=== PATIENT | female | born 1995 | race Caucasian/White ===

== ENCOUNTER 2021-06-21 10:08 | Emergency (ER) | payer BC ==
[2021-06-21] MEDS ORDERED: Sodium Chloride 0.9% 1000 ML 1,000 ML ONE (10:24)
[2021-06-21 10:29] LABS: A-aADO2 0; ABG HEMOGLOBIN 14.1; ABG POTASSIUM 3.6 (3.5-5.1); ARTERIAL BLD GAS O2 SATURATION 99.2 % (95-100); ARTERIAL BLOOD GAS FIO2 21 %; ARTERIAL BLOOD GAS PCO2 31 mmHg (35-45); ARTERIAL BLOOD GAS PO2 111 mmHg (75-100); ARTERIAL BLOOD GAS pH 7.49 (7.35-7.45); CARBOXYHEMOGLOBIN 1.1 % THgb (0.0-6.9); HCO3- 23.6 (22-28); HGB O2 SAT 97.4 g/dF (94-100); Methhemoglobin 0.7 % (1.4-1.5)
[2021-06-21 10:30] LABS: ABG SITE LEFT RADIAL; ALLEN TEST OK? YES
[2021-06-21] MEDS ORDERED: Sodium Chloride 0.9% 1000 ML 1,000 ML IV SCH (10:30)
[2021-06-21 11:00] LABS: Absolute Neutrophil Ct (ANC) 7.77 (1.4-6.9); BASOPHIL % 0.2 % (0.0-0.4); Basophil (Absolute #) 0.03 (0-0.4); Eosinophil % 1.8 % (0.00-5.0); Eosinophil (Absolute #) 0.23 (0-0.5); Hemoglobin 14.2 gm/dl (12.0-16.0); Lymphocyte (Absolute #) 3.83 (1.0-4.6); Lymphocytes % 30.5 % (24.0-44.0); Mean Cell Volume 89.1 fl (78-100); Mean Corpuscular Hemoglobin 28.7 pg (26-32); Mean Corpuscular Hgb Concent. 32.3 g/dl (32-36); Mean Platelet Volume 11.3 fl (7.5-11.0); Monocyte (Absolute #) 0.71 (0.0-1.3); Monocytes % 5.6 % (0.0-12.0); Neutrophil % 61.9 % (36.0-66.0); Platelet Count 314 K/mm3 (150-450); Red Blood Count 4.94 M/mm3 (4.1-5.4); Red Cell Distribution Width 12.9 % (11.5-14.0); White Blood Count 12.6 K/mm3 (4.0-10.5)
[2021-06-21 11:01] LABS: Appearance SLIGHTLY CLOUDY (CLEAR); Bilirubin NEGATIVE (NEGATIVE); Blood NEGATIVE Ery/ul (0-5); Epithelial Cells RARE /HPF (FEW); Glucose NEGATIVE (NEGATIVE); Ketones NEGATIVE (NEGATIVE); Leukocyte Esterase NEGATIVE (NEGATIVE); Nitrite NEGATIVE (NEGATIVE); Protein,Urine Dip NEGATIVE (Negative); RBC 0-2 /HPF (0-2); Specific Gravity 1.021 (1.005-1.025); Urobilinogen NEGATIVE mg/dL (0-1); WBC 0-2 /HPF (0-5)
[2021-06-21 11:04] LABS: Bacteria FEW /HPF (NEGATIVE)
[2021-06-21 11:06] LABS: PROTIME 11.8 SECONDS (9.4-12.5)
[2021-06-21 11:08] LABS: PTT 29.4 SECONDS (25.1-36.5)
[2021-06-21 11:17] LABS: INFLUENZA A NEGATIVE (NEGATIVE); INFLUENZA B NEGATIVE (NEGATIVE)
[2021-06-21 11:19] LABS: ALBUMIN 4.5 g/dL (3.5-5.0); ALKALINE PHOSPHATASE 108 U/L (38-126); ANION GAP 17.8 MEQ/L (5-15); BLOOD UREA NITROGEN 15 mg/dL (7-17); CHLORIDE 101 mmol/L (98-107); Calcium 9.2 mg/dL (8.4-10.2); Carbon Dioxide 25 mmol/L (22-30); Creatinine 1 0.79 mg/dL (0.52-1.04); EST GLOMERULAR FILTRATION RATE > 60.0 ML/MIN; Glucose 97 mg/dL (74-106); MAGNESIUM 2.2 mg/dL (1.6-2.3); NT PRO BNP 24.2 pg/mL (0-450); Potassium 3.4 mmol/L (3.5-5.1); SGOT/AST 20 U/L (14-36); SGPT/ALT 18 U/L (0-35); SODIUM 140 mmol/L (137-145); Total Protein 7.9 g/dL (6.3-8.2)
[2021-06-21 11:21] VITALS: BP 141/77; PULSE 82; O2SAT 100
--- NOTE | 2021-06-21 12:34 | XRAY ---
Indication: Chest tightness and short of breath. Negative Covid 19 testing. Multiple contiguous axial images obtained through the chest using 100 cc Isovue 370 contrast and PE protocol. Comparison: None There is adequate opacification of the pulmonary arteries to include the lobar and segmental branches. No pulmonary embolus. Heart not enlarged. Aorta is normal in course and caliber. No pathologic mediastinal/hilar lymphadenopathy. Small hiatal hernia. Lungs are inflated and clear. Bony thorax intact. Limited upper abdomen demonstrates fatty liver and 14.6 cm splenomegaly. Impression: 1. Negative pulmonary embolus. No acute cardiopulmonary abnormalities. 2. Incidental small hiatal hernia, fatty liver, and splenomegaly.
--- NOTE | 2021-06-21 12:48 | ERPHSYRPT ---
- History of Present Illness Time Seen by Provider: 06/21/21 10:30 Source: patient Exam Limitations: no limitations Patient Subjective Stated Complaint: SOB Triage Nursing Assessment: .... Physician History: Patient is a 25-year-old white female who presents with a complaint of shortness of breath basically for 3 weeks. She also this morning noticed some tingling in her face she had a near syncopal episode and she was dizzy. She has been tested for Covid on 15 June and 14 July she has been seen at the [facility] twice diagnosed with bronchitis started on prednisone and Z-Zacarias. Denies any other real symptoms associated with Covid beyond shortness of breath and cough. Timing/Duration: week(s) (3) Cough Quality/Degree: moderate, productive cough Possible Cause: no prior episodes Modifying Factors: Improves With: albuterol inhaler, coughing, exertion Associated Symptoms: cough, dizziness, wheezing Allergies/Adverse Reactions: cefaclor [From Ceclor] Allergy (Verified 06/21/21 10:17) Hx Influenza Vaccination/Date Given: No Hx Pneumococcal Vaccination/Date Given: No Immunizations Up to Date: Yes Travel Risk - International Travel Have you traveled outside of the country in past 3 weeks: No - Coronavirus Screening Are you exhibiting any of the following symptoms?: Yes Symptoms: Shortness of Breath, Headaches/Body Aches/Fatigue - Vaccine Status Have you recieved a Covid-19 vaccination: No - Review of Systems Constitutional: No Fever, No Chills Eyes: No Symptoms Ears, Nose, & Throat: No Symptoms Respiratory: Cough, Dyspnea, Wheezing Cardiac: No Chest Pain, No Edema, No Syncope Abdominal/Gastrointestinal: No Abdominal Pain, No Nausea, No Vomiting, No Diarrhea Genitourinary Symptoms: No Dysuria Musculoskeletal: No Back Pain, No Neck Pain Skin: No Rash Neurological: No Dizziness, No Focal Weakness, No Sensory Changes Psychological: No Symptoms Endocrine: No Symptoms All Other Systems: Reviewed and Negative - Past Medical History Pertinent Past Medical History: No Neurological History: No Pertinent History ENT History: No Pertinent History Cardiac History: No Pertinent History Respiratory History: No Pertinent History Endocrine Medical History: No Pertinent History Musculoskeletal History: No Pertinent History GI Medical History: No Pertinent History History: No Pertinent History Psycho-Social History: No Pertinent History Female Reproductive Disorders: No Pertinent History - Past Surgical History Past Surgical History: No Neuro Surgical History: No Pertinent History Cardiac: No Pertinent History Respiratory: No Pertinent History Gastrointestinal: No Pertinent History Genitourinary: No Pertinent History Musculoskeletal: No Pertinent History Female Surgical History: No Pertinent History - Social History Smoking Status: Never smoker Exposure to second hand smoke: No Drug Use: none Patient Lives Alone: No - Female History Hx Last Menstrual Period: last week Hx Now: No - Nursing Vital Signs Nursing Vital Signs: Initial Vital Signs Temperature 98.1 F 06/21/21 10:18 Pulse Rate 91 H 06/21/21 10:18 Respiratory Rate 19 06/21/21 10:18 Blood Pressure 142/107 06/21/21 10:18 O2 Sat by Pulse Oximetry 99 06/21/21 10:18 Pain Scale Pain Intensity 0 - Physical Exam General Appearance: mild distress, alert Eye Exam: PERRL/EOMI, eyes nml inspection Ears, Nose, Throat Exam: normal ENT inspection, TMs normal, pharynx normal, m oist mucous membranes Neck Exam: normal inspection, non-tender, supple, full range of motion Respiratory Exam: normal breath sounds, lungs clear, No respiratory distress Cardiovascular Exam: regular rate/rhythm, normal heart sounds Gastrointestinal/Abdomen Exam: soft, No tenderness Back Exam: normal inspection, No CVA tenderness, No vertebral tenderness Extremity Exam: normal inspection, normal range of motion Neurologic Exam: alert, oriented x 3, cooperative, normal mood/affect, sensation nml, No motor deficits Skin Exam: normal color, warm, dry, No rash Lymphatic Exam: No adenopathy SpO2: 100 - Course Nursing assessment & vital signs reviewed: Yes EKG Interpreted by Me: RATE ([id number]), Sinus Rhythm, NORMAL AXIS, prolonged QT interval, NORMAL QRS, Non-specific ST Changes - CT Exams Chest CT Interpretation: Negative, Tele-radiologist Report Ordered Tests: Active Orders 24 hr Category Date Time Status EKG-ER Only STAT Care 06/21/21 10:16 Active IV Insertion STAT Care 06/21/21 10:16 Active CHEST WITH CONTRAST [CT] Stat Exams 06/21/21 10:17 Completed ARTERIAL BLOOD GASES Urgent Lab 06/21/21 10:16 Completed CBC W DIFF Stat Lab 06/21/21 10:40 Completed CMP Stat Lab 06/21/21 10:40 Completed D-DIMER QUANTITATIVE Stat Lab 06/21/21 10:51 Completed INFLUENZA A+B DANA Stat Lab 06/21/21 10:50 Completed Lactic Acid Stat Lab 06/21/21 10:16 Completed Lactic Acid Stat Lab 06/21/21 12:31 Received MAGNESIUM Stat Lab 06/21/21 10:40 Completed NT PRO BNP Stat Lab 06/21/21 10:40 Completed PROTIME WITH INR Stat Lab 06/21/21 10:51 Completed PTT Stat Lab 06/21/21 10:51 Completed TROPONIN Q3H Lab 06/21/21 10:40 Completed TROPONIN Q3H Lab 06/21/21 13:30 Ordered TROPONIN Q3H Lab 06/21/21 16:30 Ordered TROPONIN Q3H Lab 06/21/21 19:30 Ordered TROPONIN Q3H Lab 06/21/21 22:30 Ordered UA W/RFX UR CULTURE Stat Lab 06/21/21 10:22 Completed Medication Summary Generic Name Dose Route Start Last Admin Trade Name Freq PRN Reason Stop Dose Admin Sodium Chloride 1,000 mls @ 100 mls/hr 06/21/21 10:30 06/21/21 10:24 Sodium Chloride 0.9% 1000 Ml IV 07/21/21 10:29 100 mls/hr .Q10H CANDACE Administration Lab/Rad Data: Laboratory Result Diagrams 06/21/21 10:40 06/21/21 10:40 Laboratory Results 06/21/21 06/21/21 06/21/21 Range/Units 10:51 10:50 10:40 WBC (4.0-10.5) K/mm3 RBC (4.1-5.4) M/mm3 Hgb (12.0-16.0) gm/dl Hct (35-47) % MCV (78-100) fl MCH (26-32) pg MCHC (32-36) g/dl RDW (11.5-14.0) % Plt Count (150-450) K/mm3 MPV (7.5-11.0) fl Gran % (36.0-66.0) % Eos # (Auto) (0-0.5) Absolute Lymphs (auto) (1.0-4.6) Absolute Monos (auto) (0.0-1.3) Lymphocytes % (24.0-44.0) % Monocytes % (0.0-12.0) % Eosinophils % (0.00-5.0) % Basophils % (0.0-0.4) % Absolute Granulocytes (1.4-6.9) Basophils # (0-0.4) PT 11.8 (9.4-12.5) SECONDS INR 1.00 (0.8-3.0) APTT 29.4 (25.1-36.5) SECONDS D-Dimer 426 (215-500) ng/mL Puncture Site pCO2 (35-45) mmHg pO2 (75-100) mmHg Base Excess (-2.0-2.0) O2 Saturation (94-100) g/dF ABG pH (7.35-7.45) ABG HCO3 (22-28) ABG O2 Sat (Measured) (95-100) % Ricardo Test A-a Gradient a/A Ratio Hemoglobin Carboxyhemoglobin (0.0-6.9) % THgb Methemoglobin (1.4-1.5) % Potassium (3.5-5.1) Temperature C POC O2 Flow Rate % Sodium (137-145) mmol/L Chloride (98-107) mmol/L Carbon Dioxide (22-30) mmol/L Anion Gap (5-15) MEQ/L BUN (7-17) mg/dL Creatinine (0.52-1.04) mg/dL Estimated GFR ML/MIN Glucose (74-106) mg/dL Lactic Acid (0.4-2.0) Calcium (8.4-10.2) mg/dL Magnesium (1.6-2.3) mg/dL Total Bilirubin (0.2-1.3) mg/dL AST (14-36) U/L ALT (0-35) U/L Alkaline Phosphatase (38-126) U/L Troponin I < 0.012 (0.000-0.034) ng/mL NT-Pro-B Natriuret Pep (0-450) pg/mL Serum Total Protein (6.3-8.2) g/dL Albumin (3.5-5.0) g/dL Urine Color (YELLOW) Urine Appearance (CLEAR) Urine pH (5-6) Ur Specific [place] (1.005-1.025) Urine Protein (Negative) Urine Ketones (NEGATIVE) Urine Blood (0-5) Angel/ul Urine Nitrite (NEGATIVE) Urine Bilirubin (NEGATIVE) Urine Urobilinogen (0-1) mg/dL Ur Leukocyte Esterase (NEGATIVE) Urine WBC (Auto) (0-5) /HPF Urine RBC (Auto) (0-2) /HPF U Epithel Cells (Auto) (FEW) /HPF Urine Bacteria (Auto) (NEGATIVE) /HPF Urine Culture Reflexed (NO) Urine Glucose (NEGATIVE) mg/dL Influenza Type A Ag NEGATIVE (NEGATIVE) Influenza Type B Ag NEGATIVE (NEGATIVE) 06/21/21 06/21/21 06/21/21 Range/Units 10:40 10:40 10:22 WBC 12.6 H (4.0-10.5) K/mm3 RBC 4.94 (4.1-5.4) M/mm3 Hgb 14.2 (12.0-16.0) gm/dl Hct 44.0 (35-47) % MCV 89.1 (78-100) fl MCH 28.7 (26-32) pg MCHC 32.3 (32-36) g/dl RDW 12.9 (11.5-14.0) % Plt Count 314 (150-450) K/mm3 MPV 11.3 H (7.5-11.0) fl Gran % 61.9 (36.0-66.0) % Eos # (Auto) 0.23 (0-0.5) Absolute Lymphs (auto) 3.83 (1.0-4.6) Absolute Monos (auto) 0.71 (0.0-1.3) Lymphocytes % 30.5 (24.0-44.0) % Monocytes % 5.6 (0.0-12.0) % Eosinophils % 1.8 (0.00-5.0) % Basophils % 0.2 (0.0-0.4) % Absolute Granulocytes 7.77 H (1.4-6.9) Basophils # 0.03 (0-0.4) PT (9.4-12.5) SECONDS INR (0.8-3.0) APTT (25.1-36.5) SECONDS D-Dimer (215-500) ng/mL Puncture Site pCO2 (35-45) mmHg pO2 (75-100) mmHg Base Excess (-2.0-2.0) O2 Saturation (94-100) g/dF ABG pH (7.35-7.45) ABG HCO3 (22-28) ABG O2 Sat (Measured) (95-100) % Ricardo Test A-a Gradient a/A Ratio Hemoglobin Carboxyhemoglobin (0.0-6.9) % THgb Methemoglobin (1.4-1.5) % Potassium 3.4 L (3.5-5.1) Temperature C POC O2 Flow Rate % Sodium 140 (137-145) mmol/L Chloride 101 (98-107) mmol/L Carbon Dioxide 25 (22-30) mmol/L Anion Gap 17.8 H (5-15) MEQ/L BUN 15 (7-17) mg/dL Creatinine 0.79 (0.52-1.04) mg/dL Estimated GFR > 60.0 ML/MIN Glucose 97 (74-106) mg/dL Lactic Acid (0.4-2.0) Calcium 9.2 (8.4-10.2) mg/dL Magnesium 2.2 (1.6-2.3) mg/dL Total Bilirubin 0.50 (0.2-1.3) mg/dL AST 20 (14-36) U/L ALT 18 (0-35) U/L Alkaline Phosphatase 108 (38-126) U/L Troponin I (0.000-0.034) ng/mL NT-Pro-B Natriuret Pep 24.2 (0-450) pg/mL Serum Total Protein 7.9 (6.3-8.2) g/dL Albumin 4.5 (3.5-5.0) g/dL Urine Color YELLOW (YELLOW) Urine Appearance SLIGHTLY CLOUDY (CLEAR) Urine pH 6.0 (5-6) Ur Specific [place] 1.021 (1.005-1.025) Urine Protein NEGATIVE (Negative) Urine Ketones NEGATIVE (NEGATIVE) Urine Blood NEGATIVE (0-5) Angel/ul Urine Nitrite NEGATIVE (NEGATIVE) Urine Bilirubin NEGATIVE (NEGATIVE) Urine Urobilinogen NEGATIVE (0-1) mg/dL Ur Leukocyte Esterase NEGATIVE (NEGATIVE) Urine WBC (Auto) 0-2 (0-5) /HPF Urine RBC (Auto) 0-2 (0-2) /HPF U Epithel Cells (Auto) RARE (FEW) /HPF Urine Bacteria (Auto) FEW (NEGATIVE) /HPF Urine Culture Reflexed NO (NO) Urine Glucose NEGATIVE (NEGATIVE) mg/dL Influenza Type A Ag (NEGATIVE) Influenza Type B Ag (NEGATIVE) 06/21/21 06/21/21 Range/Units 10:16 10:16 WBC (4.0-10.5) K/mm3 RBC (4.1-5.4) M/mm3 Hgb (12.0-16.0) gm/dl Hct (35-47) % MCV (78-100) fl MCH (26-32) pg MCHC (32-36) g/dl RDW (11.5-14.0) % Plt Count (150-450) K/mm3 MPV (7.5-11.0) fl Gran % (36.0-66.0) % Eos # (Auto) (0-0.5) Absolute Lymphs (auto) (1.0-4.6) Absolute Monos (auto) (0.0-1.3) Lymphocytes % (24.0-44.0) % Monocytes % (0.0-12.0) % Eosinophils % (0.00-5.0) % Basophils % (0.0-0.4) % Absolute Granulocytes (1.4-6.9) Basophils # (0-0.4) PT (9.4-12.5) SECONDS INR (0.8-3.0) APTT (25.1-36.5) SECONDS D-Dimer (215-500) ng/mL Puncture Site LEFT RADIAL pCO2 31 L (35-45) mmHg pO2 111 H (75-100) mmHg Base Excess 1.0 (-2.0-2.0) O2 Saturation 97.4 (94-100) g/dF ABG pH 7.49 H (7.35-7.45) ABG HCO3 23.6 (22-28) ABG O2 Sat (Measured) 99.2 (95-100) % Ricardo Test YES A-a Gradient 0 a/A Ratio 1.00 Hemoglobin 14.1 Carboxyhemoglobin 1.1 (0.0-6.9) % THgb Methemoglobin 0.7 L (1.4-1.5) % Potassium 3.6 (3.5-5.1) Temperature 37.0 C POC O2 Flow Rate 21 % Sodium (137-145) mmol/L Chloride (98-107) mmol/L Carbon Dioxide (22-30) mmol/L Anion Gap (5-15) MEQ/L BUN (7-17) mg/dL Creatinine (0.52-1.04) mg/dL Estimated GFR ML/MIN Glucose (74-106) mg/dL Lactic Acid 3.0 H (0.4-2.0) Calcium (8.4-10.2) mg/dL Magnesium (1.6-2.3) mg/dL Total Bilirubin (0.2-1.3) mg/dL AST (14-36) U/L ALT (0-35) U/L Alkaline Phosphatase (38-126) U/L Troponin I (0.000-0.034) ng/mL NT-Pro-B Natriuret Pep (0-450) pg/mL Serum Total Protein (6.3-8.2) g/dL Albumin (3.5-5.0) g/dL Urine Color (YELLOW) Urine Appearance (CLEAR) Urine pH (5-6) Ur Specific [place] (1.005-1.025) Urine Protein (Negative) Urine Ketones (NEGATIVE) Urine Blood (0-5) Angel/ul Urine Nitrite (NEGATIVE) Urine Bilirubin (NEGATIVE) Urine Urobilinogen (0-1) mg/dL Ur Leukocyte Esterase (NEGATIVE) Urine WBC (Auto) (0-5) /HPF Urine RBC (Auto) (0-2) /HPF U Epithel Cells (Auto) (FEW) /HPF Urine Bacteria (Auto) (NEGATIVE) /HPF Urine Culture Reflexed (NO) Urine Glucose (NEGATIVE) mg/dL Influenza Type A Ag (NEGATIVE) Influenza Type B Ag (NEGATIVE) - Progress Progress: improved Air Movement: good Blood Culture(s) Obtained: No Antibiotics given: Yes - Departure Departure Disposition: Home Clinical Impression: Bronchitis Condition: Stable Critical Care Time: No Referrals: NEEMA LYN NP [Primary Care Provider] - Instructions: Acute Bronchitis Prescriptions: Prednisone 10 mg [Deltasone 10 mg] 10 mg PO TID #12 tablet Doxycycline Hyclate 100 mg [Vibramycin 100 MG] 100 mg PO BID #14 tab
== END 2021-06-21 12:59 | disposition home or self-care (01) ==
LOC: ED 10:08
DX: J40 Bronchitis, not specified as acute or chronic (principal); R06.02 Shortness of breath; R05 Cough; R42 Dizziness and giddiness
CPT/HCPCS: 36000; 36415; 36600; 71260; 80053; 81001; 82375; 82803; 83605; 83735; 83880; 84484; 85025; 85379; 85610; 85730; 87400; 93005; 99284; U0003

== ENCOUNTER 2022-02-22 11:53 | Emergency (ER) | payer BC ==
[2022-02-22] MEDS ORDERED: Sodium Chloride 0.9% 1000 ML 1,000 ML IV STA (12:18)
[2022-02-22] MEDS ORDERED: Zofran 4 MG/2 ML VIAL IV ONE (12:18)
--- NOTE | 2022-02-22 12:18 | ERPHSYRPT ---
- History of Present Illness Time Seen by Provider: 02/22/22 12:17 Historian: patient Exam Limitations: no limitations Patient Subjective Stated Complaint: Pt c/o of abdominal pain, vomiting x1, shortness of breath (alpha 1), diarrhea, sore throat, since yesterday Triage Nursing Assessment: Pt brought to the ER by her mother, vitals wnl, rates abdominal pain as 3/10, diarrhea approx 10x today, vomited yesterday one time, shortness of breath always due to having alpha 1, and a sore throat, pulses normal, skin n/w/d, lungs clear, doesn't appear to be in any distress Physician History: This is a 26-year-old obese white female patient of nurse practitioner Andrea who began having symptoms yesterday of vomiting, abdominal pain and multiple episodes of diarrhea. Patient has chronic shortness of breath. She denies c hest pain. She also has sore throat. She has no complaints of fever. Patient was recently diagnosed with alpha 1 antitrypsin deficiency Timing/Duration: yesterday Activities at Onset: none Quality: aching Abdominal Pain Onset Location: generalized abdomen Severity of Pain-Max: mild Severity of Pain-Current: mild Associated Symptoms: nausea, vomiting, weakness Previous symptoms: no prior history Allergies/Adverse Reactions: cefaclor [From [facility]] Allergy (Verified 02/22/22 12:10) Home Medications: Propranolol HCl [Propranolol HCl ER] 60 mg PO DAILY 02/22/22 [History] Sertraline HCl 50 mg [Zoloft 50 mg Tablet] 50 mg PO DAILY 02/22/22 [History] Hx Influenza Vaccination/Date Given: No Hx Pneumococcal Vaccination/Date Given: No Travel Risk - International Travel Have you traveled outside of the country in past 3 weeks: No - Coronavirus Screening Are you exhibiting any of the following symptoms?: Yes Symptoms: Shortness of Breath, Vomiting/Diarrhea Close contact with a COVID-19 positive Pt in past 14-21 Days: No - Vaccine Status Have you recieved a Covid-19 vaccination: No - Review of Systems Constitutional: Weakness Eyes: No Symptoms Ears, Nose, & Throat: No Symptoms Respiratory: Dyspnea Cardiac: No Symptoms Abdominal/Gastrointestinal: Abdominal Pain, Nausea, Vomiting, Diarrhea Genitourinary Symptoms: No Symptoms Musculoskeletal: No Symptoms Skin: No Symptoms Neurological: No Symptoms Psychological: No Symptoms Endocrine: No Symptoms Hematologic/Lymphatic: No Symptoms Immunological/Allergic: No Symptoms All Other Systems: Reviewed and Negative - Past Medical History Pertinent Past Medical History: Yes Neurological History: No Pertinent History ENT History: No Pertinent History Cardiac History: No Pertinent History Respiratory History: No Pertinent History Endocrine Medical History: No Pertinent History Musculoskeletal History: No Pertinent History GI Medical History: No Pertinent History History: No Pertinent History Psycho-Social History: No Pertinent History Female Reproductive Disorders: No Pertinent History Other Medical History: Alpha 1 - Past Surgical History Past Surgical History: No Neuro Surgical History: No Pertinent History Cardiac: No Pertinent History Respiratory: No Pertinent History Gastrointestinal: No Pertinent History Genitourinary: No Pertinent History Musculoskeletal: No Pertinent History Female Surgical History: No Pertinent History - Social History Smoking Status: Never smoker Exposure to second hand smoke: No Drug Use: none Patient Lives Alone: No - Female History Hx Last Menstrual Period: january 2022 Hx Now: No (unsure) - Nursing Vital Signs Nursing Vital Signs: Initial Vital Signs Temperature 96.4 F 02/22/22 12:01 Pulse Rate 88 02/22/22 12:01 Respiratory Rate 18 02/22/22 12:01 Blood Pressure 135/65 02/22/22 12:01 O2 Sat by Pulse Oximetry 99 02/22/22 12:01 Pain Scale Pain Intensity 3 - Physical Exam General Appearance: no apparent distress, alert, anxiety, obese Eye Exam: PERRL/EOMI Ears, Nose, Throat Exam: normal ENT inspection, moist mucous membranes Neck Exam: normal inspection, non-tender, supple, full range of motion Respiratory Exam: normal breath sounds, lungs clear, airway intact, No chest tenderness, No respiratory distress Cardiovascular Exam: regular rate/rhythm, normal heart sounds, normal peripheral pulses Gastrointestinal/Abdomen Exam: soft, normal bowel sounds, tenderness (Mild diffuse), No guarding, No rebound Pelvic Exam: not done Rectal Exam: not done Back Exam: normal inspection, normal range of motion, No CVA tenderness, No vertebral tenderness Extremity Exam: normal inspection, normal range of motion, pelvis stable Neurologic Exam: alert, oriented x 3, 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 When compared to EKG dated 06/21/2021, the Q waves have resolved. There has been resolution of prolonged QT interval.) Ordered Tests: Active Orders 24 hr Category Date Time Status IV Insertion STAT Care 02/22/22 12:18 Active AMYLASE Stat Lab 02/22/22 12:08 Completed BLOOD CULTURE Stat Lab 02/22/22 12:34 Received CBC W DIFF Stat Lab 02/22/22 12:08 Completed CMP Stat Lab 02/22/22 12:08 Completed HCG,QUALITATIVE URINE Stat Lab 02/22/22 13:00 Completed LIPASE Stat Lab 02/22/22 12:08 Completed Crowley Screen Stat Lab 02/22/22 12:08 Completed UA W/RFX CULTURE Stat Lab 02/22/22 13:10 Completed Medication Summary Discontinued Medications Generic Name Dose Route Start Last Admin Trade Name Mian PRN Reason Stop Dose Admin Sodium Chloride 1,000 mls @ 999 mls/hr 02/22/22 12:18 02/22/22 13:39 Sodium Chloride 0.9% 1000 Ml IV 02/22/22 13:18 Infused .Q1H1M STA Infusion Sodium Chloride Confirm 02/22/22 12:29 Sodium Chloride 0.9% 1000 Ml Administered 02/22/22 12:30 Dose 1,000 mls @ ud .ROUTE .STK-MED ONE Metronidazole 500 mg 02/22/22 15:24 02/22/22 15:31 Metronidazole 500 Mg Tablet PO 02/22/22 15:25 500 mg STAT ONE Administration Metronidazole Confirm 02/22/22 15:30 Metronidazole 500 Mg Tablet Administered 02/22/22 15:31 Dose 500 mg .ROUTE .STK-MED ONE Ondansetron HCl 4 mg 02/22/22 12:18 02/22/22 12:30 Ondansetron Hcl 4 Mg/2 Ml Vial IV 02/22/22 12:19 4 mg STAT ONE Administration Ondansetron HCl Confirm 02/22/22 12:29 Ondansetron Hcl 4 Mg/2 Ml Vial Administered 02/22/22 12:30 Dose 4 mg .ROUTE .STK-MED ONE Lab/Rad Data: Laboratory Result Diagrams 02/22/22 12:08 02/22/22 12:08 Laboratory Results 02/22/22 02/22/22 02/22/22 Range/Units 13:10 13:00 12:41 WBC (4.0-10.5) x10^3/uL RBC (4.1-5.4) x10^6/uL Hgb (12.0-16.0) g/dL Hct (35-47) % MCV (78-100) fL MCH (26-32) pg MCHC (32-36) g/dL RDW (11.5-14.0) % Plt Count (150-450) x10^3/uL MPV (7.5-11.0) fL Gran % (36.0-66.0) % Immature Gran % (Auto) (0.00-0.4) % Nucleat RBC Rel Count (0.00-0.1) % Eos # (Auto) (0-0.5) x10^3/uL Immature Gran # (Auto) (0.00-0.03) x10^3u/L Absolute Lymphs (auto) (1.0-4.6) x10^3/uL Absolute Monos (auto) (0.0-1.3) x10^3/uL Absolute Nucleated RBC (0.00-0.01) x10^3u/L Lymphocytes % (24.0-44.0) % Monocytes % (0.0-12.0) % Eosinophils % (0.00-5.0) % Basophils % (0.0-0.4) % Absolute Granulocytes (1.4-6.9) x10^3/uL Basophils # (0-0.4) x10^3/uL Sodium (137-145) mmol/L Potassium (3.5-5.1) mmol/L Chloride (98-107) mmol/L Carbon Dioxide (22-30) mmol/L Anion Gap (5-15) MEQ/L BUN (7-17) mg/dL Creatinine (0.52-1.04) mg/dL Estimated GFR ML/MIN Glucose (74-106) mg/dL Calcium (8.4-10.2) mg/dL Total Bilirubin (0.2-1.3) mg/dL AST (14-36) U/L ALT (0-35) U/L Alkaline Phosphatase (38-126) U/L Serum Total Protein (6.3-8.2) g/dL Albumin (3.5-5.0) g/dL Amylase (30-110) U/L Lipase (23-300) U/L Urinalys Dipstick Clnc MAIN LAB Urine Color YELLOW (YELLOW) Urine Appearance CLEAR (CLEAR) Urine pH 5.5 (5-6) Ur Specific [place] >=1.030 (1.005-1.025) POC Urine Protein Conf NEGATIVE (Negative) Urine Ketones NEGATIVE (NEGATIVE) Urine Nitrite NEGATIVE (NEGATIVE) Urine Bilirubin NEGATIVE (NEGATIVE) Urine Urobilinogen 0.2 (0-1) mg/dL Urine Leukocytes NEGATIVE (NEGATIVE) Urine WBC (Auto) 0-2 (0-5) /HPF Urine RBC (Auto) 0-2 (0-2) /HPF U Epithel Cells (Auto) RARE (FEW) /HPF Urine RBC NEGATIVE (0-5) Angel/ul Urine Mucus (Auto) MANY (NEGATIVE) /HPF Ur Culture Indicated? NO Urine Glucose NEGATIVE (NEGATIVE) mg/dL Urine HCG, Qual NEGATIVE (Negative) Monoscreen (Negative) Influenza Type A Ag (NEGATIVE) Influenza Type B Ag (NEGATIVE) RSV (PCR) (Negative) SARS-CoV-2 (PCR) (NEGATIVE) Group A Strep Antibody NOT DETECTED (NEGATIVE) 02/22/22 02/22/22 02/22/22 Range/Units 12:41 12:08 12:08 WBC (4.0-10.5) x10^3/uL RBC (4.1-5.4) x10^6/uL Hgb (12.0-16.0) g/dL Hct (35-47) % MCV (78-100) fL MCH (26-32) pg MCHC (32-36) g/dL RDW (11.5-14.0) % Plt Count (150-450) x10^3/uL MPV (7.5-11.0) fL Gran % (36.0-66.0) % Immature Gran % (Auto) (0.00-0.4) % Nucleat RBC Rel Count (0.00-0.1) % Eos # (Auto) (0-0.5) x10^3/uL Immature Gran # (Auto) (0.00-0.03) x10^3u/L Absolute Lymphs (auto) (1.0-4.6) x10^3/uL Absolute Monos (auto) (0.0-1.3) x10^3/uL Absolute Nucleated RBC (0.00-0.01) x10^3u/L Lymphocytes % (24.0-44.0) % Monocytes % (0.0-12.0) % Eosinophils % (0.00-5.0) % Basophils % (0.0-0.4) % Absolute Granulocytes (1.4-6.9) x10^3/uL Basophils # (0-0.4) x10^3/uL Sodium 138 (137-145) mmol/L Potassium 3.7 (3.5-5.1) mmol/L Chloride 108 H (98-107) mmol/L Carbon Dioxide 21 L (22-30) mmol/L Anion Gap 12.4 (5-15) MEQ/L BUN 15 (7-17) mg/dL Creatinine 0.61 (0.52-1.04) mg/dL Estimated GFR > 60.0 ML/MIN Glucose 88 (74-106) mg/dL Calcium 8.4 (8.4-10.2) mg/dL Total Bilirubin 0.40 (0.2-1.3) mg/dL AST 16 (14-36) U/L ALT 11 (0-35) U/L Alkaline Phosphatase 82 (38-126) U/L Serum Total Protein 6.9 (6.3-8.2) g/dL Albumin 3.8 (3.5-5.0) g/dL Amylase 61 (30-110) U/L Lipase 29 (23-300) U/L Urinalys Dipstick Clnc Urine Color (YELLOW) Urine Appearance (CLEAR) Urine pH (5-6) Ur Specific [place] (1.005-1.025) POC Urine Protein Conf (Negative) Urine Ketones (NEGATIVE) Urine Nitrite (NEGATIVE) Urine Bilirubin (NEGATIVE) Urine Urobilinogen (0-1) mg/dL Urine Leukocytes (NEGATIVE) Urine WBC (Auto) (0-5) /HPF Urine RBC (Auto) (0-2) /HPF U Epithel Cells (Auto) (FEW) /HPF Urine RBC (0-5) Angel/ul Urine Mucus (Auto) (NEGATIVE) /HPF Ur Culture Indicated? Urine Glucose (NEGATIVE) mg/dL Urine HCG, Qual (Negative) Monoscreen NEGATIVE (Negative) Influenza Type A Ag NEGATIVE (NEGATIVE) Influenza Type B Ag NEGATIVE (NEGATIVE) RSV (PCR) NEGATIVE (Negative) SARS-CoV-2 (PCR) NEGATIVE (NEGATIVE) Group A Strep Antibody (NEGATIVE) 02/22/22 Range/Units 12:08 WBC 10.4 (4.0-10.5) x10^3/uL RBC 4.45 (4.1-5.4) x10^6/uL Hgb 13.1 (12.0-16.0) g/dL Hct 41.3 (35-47) % MCV 92.8 (78-100) fL MCH 29.4 (26-32) pg MCHC 31.7 L (32-36) g/dL RDW 12.5 (11.5-14.0) % Plt Count 287 (150-450) x10^3/uL MPV 11.5 H (7.5-11.0) fL Gran % 66.1 H (36.0-66.0) % Immature Gran % (Auto) 0.4 (0.00-0.4) % Nucleat RBC Rel Count 0.0 (0.00-0.1) % Eos # (Auto) 0.27 (0-0.5) x10^3/uL Immature Gran # (Auto) 0.04 H (0.00-0.03) x10^3u/L Absolute Lymphs (auto) 2.37 (1.0-4.6) x10^3/uL Absolute Monos (auto) 0.80 (0.0-1.3) x10^3/uL Absolute Nucleated RBC 0.00 (0.00-0.01) x10^3u/L Lymphocytes % 22.7 L (24.0-44.0) % Monocytes % 7.7 (0.0-12.0) % Eosinophils % 2.6 (0.00-5.0) % Basophils % 0.5 (0.0-0.4) % Absolute Granulocytes 6.90 (1.4-6.9) x10^3/uL Basophils # 0.05 (0-0.4) x10^3/uL Sodium (137-145) mmol/L Potassium (3.5-5.1) mmol/L Chloride (98-107) mmol/L Carbon Dioxide (22-30) mmol/L Anion Gap (5-15) MEQ/L BUN (7-17) mg/dL Creatinine (0.52-1.04) mg/dL Estimated GFR ML/MIN Glucose (74-106) mg/dL Calcium (8.4-10.2) mg/dL Total Bilirubin (0.2-1.3) mg/dL AST (14-36) U/L ALT (0-35) U/L Alkaline Phosphatase (38-126) U/L Serum Total Protein (6.3-8.2) g/dL Albumin (3.5-5.0) g/dL Amylase (30-110) U/L Lipase (23-300) U/L Urinalys Dipstick Clnc Urine Color (YELLOW) Urine Appearance (CLEAR) Urine pH (5-6) Ur Specific [place] (1.005-1.025) POC Urine Protein Conf (Negative) Urine Ketones (NEGATIVE) Urine Nitrite (NEGATIVE) Urine Bilirubin (NEGATIVE) Urine Urobilinogen (0-1) mg/dL Urine Leukocytes (NEGATIVE) Urine WBC (Auto) (0-5) /HPF Urine RBC (Auto) (0-2) /HPF U Epithel Cells (Auto) (FEW) /HPF Urine RBC (0-5) Angel/ul Urine Mucus (Auto) (NEGATIVE) /HPF Ur Culture Indicated? Urine Glucose (NEGATIVE) mg/dL Urine HCG, Qual (Negative) Monoscreen (Negative) Influenza Type A Ag (NEGATIVE) Influenza Type B Ag (NEGATIVE) RSV (PCR) (Negative) SARS-CoV-2 (PCR) (NEGATIVE) Group A Strep Antibody (NEGATIVE) - Progress Progress: improved Counseled pt/family regarding: lab results, diagnosis, need for follow-up - Departure Departure Disposition: Home Clinical Impression: Diarrheal stools Condition: Stable Critical Care Time: No Referrals: NEEMA LYN NP [Primary Care Provider] - Follow up/PCP as directed Additional Instructions: Drink plenty of fluids. Take your antibiotics as prescribed. Follow-up with your primary care physician for further management. Prescriptions: Ondansetron ODT 4 MG [Zofran Odt 4 mg] 4 mg PO Q6H PRN PRN #10 tablet PRN Reason: Vomiting Metronidazole 500 mg [Flagyl 500 MG] 500 mg PO TID #21 tablet
[2022-02-22] MEDS ORDERED: Sodium Chloride 0.9% 1000 ML 1,000 ML ONE (12:29)
[2022-02-22] MEDS ORDERED: Zofran 4 MG/2 ML VIAL ONE (12:29)
[2022-02-22 12:57] LABS: Basophil (Absolute #) 0.05 x10^3/uL (0-0.4); Eosinophil % 2.6 % (0.00-5.0); Eosinophil (Absolute #) 0.27 x10^3/uL (0-0.5); Hematocrit 41.3 % (35-47); Hemoglobin 13.1 g/dL (12.0-16.0); Lymphocyte (Absolute #) 2.37 x10^3/uL (1.0-4.6); Lymphocytes % 22.7 % (24.0-44.0); Mean Cell Volume 92.8 fL (78-100); Mean Corpuscular Hemoglobin 29.4 pg (26-32); Mean Corpuscular Hgb Concent. 31.7 g/dL (32-36); Mean Platelet Volume 11.5 fL (7.5-11.0); Monocytes % 7.7 % (0.0-12.0); Neutrophil % 66.1 % (36.0-66.0); Platelet Count 287 x10^3/uL (150-450); Red Blood Count 4.45 x10^6/uL (4.1-5.4); Red Cell Distribution Width 12.5 % (11.5-14.0); White Blood Count 10.4 x10^3/uL (4.0-10.5)
[2022-02-22 13:21] LABS: ALBUMIN 3.8 g/dL (3.5-5.0); ALKALINE PHOSPHATASE 82 U/L (38-126); AMYLASE 61 U/L (30-110); ANION GAP 12.4 MEQ/L (5-15); BLOOD UREA NITROGEN 15 mg/dL (7-17); CHLORIDE 108 mmol/L (98-107); Calcium 8.4 mg/dL (8.4-10.2); Carbon Dioxide 21 mmol/L (22-30); Creatinine 1 0.61 mg/dL (0.52-1.04); EST GLOMERULAR FILTRATION RATE > 60.0 ML/MIN; Glucose 88 mg/dL (74-106); LIPASE 29 U/L (23-300); Potassium 3.7 mmol/L (3.5-5.1); SGOT/AST 16 U/L (14-36); SGPT/ALT 11 U/L (0-35); SODIUM 138 mmol/L (137-145); Total Protein 6.9 g/dL (6.3-8.2)
[2022-02-22 14:01] LABS: Epithelial Cells RARE /HPF (FEW); Mucus MANY /HPF (NEGATIVE); RBC 0-2 /HPF (0-2); WBC 0-2 /HPF (0-5)
[2022-02-22 14:02] LABS: Appearance CLEAR (CLEAR); Bilirubin NEGATIVE (NEGATIVE); Glucose NEGATIVE (NEGATIVE); Ketones NEGATIVE (NEGATIVE); Nitrite NEGATIVE (NEGATIVE); Ph 5.5 (5-6); Protein,Urine Dip NEGATIVE (Negative); RBC NEGATIVE Ery/ul (0-5); Specific Gravity >=1.030 (1.005-1.025); Urobilinogen 0.2 mg/dL (0-1)
[2022-02-22 14:03] LABS: Dipstick done @ ? MAIN LAB; Urine Cultured Indicated? NO
[2022-02-22 14:58] LABS: INFLUENZA A NEGATIVE (NEGATIVE); INFLUENZA B NEGATIVE (NEGATIVE); RESPIRATORY SYNCTIAL VIRUS NEGATIVE (Negative); SARS-CoV-2 Xpert Express NEGATIVE (NEGATIVE)
[2022-02-22 15:09] LABS: 027 TOX PROD PRESUMPTIVE NEGATIVE (NEGATIVE); TOXIGENIC C. DIFF ORG NEGATIVE (NEGATIVE)
[2022-02-22 15:10] VITALS: BP 112/59; PULSE 78; O2SAT 98
[2022-02-22] MEDS ORDERED: Flagyl 500 MG PO ONE (15:24)
[2022-02-22] MEDS ORDERED: Flagyl 500 MG ONE (15:30)
[2022-02-26 06:07] LABS: Adenovirus F40/41 Not Detected (Not Detected); Astrovirus Not Detected (Not Detected); Campylobacter Not Detected (Not Detected); Cryptosporidium Not Detected (Not Detected); Cyclospora cayetanensis Not Detected (Not Detected); Entamoeba histolytica Not Detected (Not Detected); Enteroaggregative E coli Not Detected (Not Detected); Enterpathogenic E coli Not Detected (Not Detected); Entertoxigenic E coli Not Detected (Not Detected); Giardia lamblia Not Detected (Not Detected); Norovirus GI/GII Not Detected (Not Detected); Plesiomonas shigelloides Not Detected (Not Detected); Rotavirus A Not Detected (Not Detected); Salmonella Not Detected (Not Detected); Shig-toxin-producing E coli Not Detected (Not Detected); Shigella/Enterinvasive E coli Not Detected (Not Detected); Vibrio Not Detected (Not Detected); Vibrio cholerae Not Detected (Not Detected); Yersinia enterocolitica Not Detected (Not Detected)
[2022-02-26 07:35] LABS: Sapovirus Not Detected (Not Detected)
== END 2022-02-22 15:47 | disposition home or self-care (01) ==
LOC: ED 11:53
DX: R19.7 Diarrhea, unspecified (principal); R11.2 Nausea with vomiting, unspecified; R10.84 Generalized abdominal pain; J02.9 Acute pharyngitis, unspecified; E88.01 Alpha-1-antitrypsin deficiency; Z79.899 Other long term (current) drug therapy
CPT/HCPCS: 0241U; 36000; 36415; 80053; 81015; 82150; 83690; 84703; 85025; 86308; 87040; 87328; 87329; 87493; 87507; 87651; 93005; 96360; 96374; 99284; J2405; A9270-GY

== ENCOUNTER 2022-06-05 05:52 | Day surgery (SDC) | payer BC ==
[2022-06-05] MEDS ORDERED: CLINDAMYCIN-D5W 900 MG/50 ML*** 900 MG/50 ML BAG IV STA (06:10)
[2022-06-05] MEDS ORDERED: Lactated Ringers 1,000 ML IV SCH (06:30)
[2022-06-05 06:55] LABS: ALBUMIN 4.2 g/dL (3.5-5.0); ALKALINE PHOSPHATASE 87 U/L (38-126); ANION GAP 12.9 MEQ/L (5-15); BLOOD UREA NITROGEN 14 mg/dL (7-17); CHLORIDE 108 mmol/L (98-107); Calcium 8.7 mg/dL (8.4-10.2); Carbon Dioxide 23 mmol/L (22-30); Creatinine 1 0.66 mg/dL (0.52-1.04); EST GLOMERULAR FILTRATION RATE > 60.0 ML/MIN; Glucose 112 mg/dL (74-106); SGOT/AST 23 U/L (14-36); SGPT/ALT 17 U/L (0-35); SODIUM 140 mmol/L (137-145); Total Protein 7.2 g/dL (6.3-8.2)
[2022-06-05] MEDS ORDERED: DIPRIVAN 200 MG/20 ML IV ONE (07:25)
[2022-06-05] MEDS ORDERED: Versed 2 MG/2 ML Injection ONE (07:25)
[2022-06-05] MEDS ORDERED: Zofran 4 MG/2 ML VIAL ONE (07:25)
[2022-06-05] MEDS ORDERED: Zemuron 100 MG/10 ML ONE (07:25)
[2022-06-05] MEDS ORDERED: Decadron 4 MG INJ ONE (07:25)
[2022-06-05] MEDS ORDERED: SUBLIMAZE 100 MCG/2 ML ONE ×3 (07:25→09:24)
[2022-06-05] MEDS ORDERED: Sensorcaine 0.25% 10 ML ONE (08:10)
[2022-06-05] MEDS ORDERED: BRIDION 200MG/2ML IV ONE (08:34)
[2022-06-05] MEDS ORDERED: TORAdol 30 mg Injection ONE (08:46)
[2022-06-05] MEDS ORDERED: Lactated Ringers 1,000 ML IV ONE (09:18)
[2022-06-05] MEDS ORDERED: Compazine 10 MG/2 ML IV ONE (10:06)
[2022-06-05 10:46] VITALS: BP 125/74; PULSE 73; O2SAT 92
[2022-06-05 10:47] LABS: Appearance CLEAR (CLEAR); Bilirubin NEGATIVE (NEGATIVE); Dipstick done @ ? MAIN LAB; Glucose NEGATIVE (NEGATIVE); Ketones NEGATIVE (NEGATIVE); Nitrite NEGATIVE (NEGATIVE); Ph 5.5 (5-6); Protein,Urine Dip NEGATIVE (Negative); RBC TRACE-INTACT Ery/ul (0-5); Specific Gravity 1.025 (1.005-1.025); Urobilinogen 0.2 mg/dL (0-1)
[2022-06-05 10:49] LABS: Mucus SLIGHT /HPF (NEGATIVE)
--- NOTE | 2022-06-06 08:03 | OP ---
SURGERY DATE/TIME: 06/05/2022 0814 PREOPERATIVE DIAGNOSES: 1) Abnormal uterine bleeding. 2) Multiparity desiring tubal sterilization POSTOPERATIVE DIAGNOSES: 1) Abnormal uterine bleeding. 2) Multiparity desiring tubal sterilization PROCEDURE: 1) Laparoscopic tubal sterilization via Falope ring application. 2) Hysteroscopy D&C with NovaSure ablation. SURGEON: Brian Jules D.O. BLUEPRINT ENGINEER: Neri Davidson and Pita Hanna, surgical elastic knitter hand frame. ANESTHESIA: General. ESTIMATED BLOOD LOSS: Minimal. COMPLICATIONS: None. INDICATIONS: The risks, benefits, indications and alternatives of the procedure were reviewed with the patient prior to the procedure. The patient understood the risk of infection, bleeding, bowel injury, bladder injury, ureteral injury, uterine perforation, pelvic infection, thromboembolic disorder, possible ectopic , possible future that may be associated with this procedure and desires to have the surgery as a possible means to alleviate her current medical condition. DESCRIPTION OF PROCEDURE AND FINDINGS: At this point the patient is taken to the operating room, given general sedation, placed in dorsal lithotomy position, prepped and draped in the usual sterile fashion. A weighted speculum is then placed in the patient's vagina and the anterior lip of the cervix is grasped with a single tooth tenaculum. Uterine manipulator was then inserted through the endocervical canal as a means to manipulate the uterus. Attention was then turned to the patient's abdomen where a 5 mm skin incision was made in the umbilical fold. A 5 mm trocar and sleeve were advanced under direct visualization where pneumoperitoneum was obtained with 4 liters of CO2 gas. An additional incision was made 2 cm above the symphysis pubis and an 8 mm incision was made and an 8 mm trocar and sleeve were advanced under direct visualization. A survey of the patient's pelvis and abdomen revealed entirely normal anatomy with no scarring noted. At this point the uterus is elevated and the Falope ring applicator was then placed through the 8 mm trocar site where the instrument was placed on the right isthmic region where the Falope ring was displaced on the right isthmic region and was done so without complication. Hemostasis was obtained. The Falope ring applicator was reloaded and the same procedure was performed on the left side where the left isthmic region the fallopian tube was identified and was displaced on its side without complication. Hemostasis was obtained. A good knuckle of tube that was taken on both sides of tubes with again hemostasis obtained. From this point all instruments were removed from the patient's abdomen and the incisions were closed with 4-0 Monocryl suture. Attention was then turned to the patient's pelvic region where a weighted speculum was then placed into the patient's vaginal region and the uterine manipulator was removed. Cervix was taken with single tooth tenaculum. Endocervical dilators were advanced through the endocervical canal as a means to dilate the cervix and the uterus measured approximately 8 cm in length. From this point a 5 mm hysteroscope was then placed in through the endocervical region where visualization appeared to be within normal limits with no gross abnormalities that was noted in the endometrial canal. The hysteroscope was removed and at this point a curette was then placed into the fundus of the uterus and curettage was performed in all quadrants of the uterus retrieving a mild amount of tissue. From this point the NovaSure instrument was then taken through the endocervical region towards the fundal region and retracted approximately 1 cm with a length of 6.5 cm and a width of 3.5 cm and the instrument was engaged with an ablative time of 52 seconds. After complete ablation, the instrument was disengaged and removed from the uterine cavity. From this point hemostasis was obtained. All instruments were removed from the patient's vaginal region. The patient was then taken out of the dorsal lithotomy position, was taken out of anesthesia and was then taken to the recovery room in stable condition.
== END 2022-06-05 10:50 | disposition home or self-care (01) ==
LOC: SDC 05:52
PROVIDERS: ATTEND Obstetrics & Gynecology
DX: Z30.2 Encounter for sterilization (principal); N93.9 Abnormal uterine and vaginal bleeding, unspecified
CPT/HCPCS: 36415; 80053; 81001; 81025; 87086; 96374; J1100; J1885; J2250; J2405; J2704; J3010

== ENCOUNTER 2022-12-15 07:13 | Emergency (ER) | payer BC ==
--- NOTE | 2022-12-15 07:18 | ERPHSYRPT ---
- History of Present Illness Time Seen by Provider: 12/15/22 07:18 Source: patient Exam Limitations: no limitations Physician History: This is a 27-year-old white female who is obese and is a patient of nurse practitioner Maria Fernanda Mendez. Patient has a history of migraine headaches. Patient presents with a 4-day history of headache, body aches, sore throat and cough. She has no recent head injuries. She has been exposed to her daughter that is been diagnosed with viral illness. Patient has not had any nausea vomiting or diarrhea. Patient does have a history of alpha 1 antitrypsin deficiency. Patient denies chest pain and denies shortness of breath. Patient is not on any new medications. Patient drove herself to the emergency department and states she cannot get a ride home. Timing/Duration: day(s) (4) Quality: aching Head Pain Location: global Severity of Pain-Max: moderate Severity of Pain-Current: mild (To moderate) Recent Head Trauma: occasional headaches Associated Symptoms: nasal congestion, sensitive to light, No confusion, No dizziness, No light-headedness, No loss of consciousness, No nausea/vomiting, No neck pain, No stiff neck, No trouble walking, No vision changes, No visual disturbance Previous symptoms: same symptoms as today Allergies/Adverse Reactions: cefaclor [From [employer]] Allergy (Verified 12/15/22 07:24) Home Medications: Propranolol HCl [Propranolol HCl ER] 60 mg PO DAILY 02/22/22 [History] Phentermine HCl [Adipex-P] 37.5 mg PO DAILY 05/14/22 [History] Hx Influenza Vaccination/Date Given: No Hx Pneumococcal Vaccination/Date Given: No Travel Risk - International Travel Have you traveled outside of the country in past 3 weeks: No - Coronavirus Screening Are you exhibiting any of the following symptoms?: Yes Symptoms: Fever, Cough: New Onset, Headaches/Body Aches/Fatigue - Vaccine Status Have you recieved a Covid-19 vaccination: No - Review of Systems Constitutional: Fever Eyes: No Symptoms Ears, Nose, & Throat: Nose Congestion, Throat Pain Respiratory: Cough, No Dyspnea Cardiac: No No Symptoms Abdominal/Gastrointestinal: No No Symptoms Genitourinary Symptoms: No No Symptoms Musculoskeletal: Arthralgias, Myalgias Neurological: No Symptoms Psychological: No Symptoms Endocrine: No Symptoms Hematologic/Lymphatic: No Symptoms Immunological/Allergic: No Symptoms All Other Systems: Reviewed and Negative - Past Medical History Pertinent Past Medical History: Yes Neurological History: Migraines ENT History: No Pertinent History Cardiac History: No Pertinent History Respiratory History: Asthma Endocrine Medical History: No Pertinent History Musculoskeletal History: No Pertinent History GI Medical History: GERD History: No Pertinent History Psycho-Social History: Depression Female Reproductive Disorders: No Pertinent History 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 - Past Surgical History Past Surgical History: No Neuro Surgical History: No Pertinent History Cardiac: No Pertinent History Respiratory: No Pertinent History Gastrointestinal: No Pertinent History Genitourinary: No Pertinent History Musculoskeletal: No Pertinent History Female Surgical History: No Pertinent History - Social History Smoking Status: Never smoker Exposure to second hand smoke: No Drug Use: none Patient Lives Alone: No - Nursing Vital Signs Nursing Vital Signs: Initial Vital Signs Temperature 101.1 F 12/15/22 07:24 Pulse Rate 130 H 12/15/22 07:24 Respiratory Rate 20 12/15/22 07:24 Blood Pressure 136/84 12/15/22 07:24 O2 Sat by Pulse Oximetry 95 12/15/22 07:24 Pain Scale Pain Intensity 4 - Physical Exam General Appearance: no apparent distress, alert, anxiety, obese Eye Exam: PERRL/EOMI, eyes nml inspection Ears, Nose, Throat Exam: normal ENT inspection, moist mucous membranes Neck Exam: normal inspection, non-tender, supple, full range of motion Respiratory Exam: normal breath sounds, lungs clear, airway intact, No chest tenderness, No respiratory distress Cardiovascular Exam: tachycardia Gastrointestinal/Abdominal Exam: soft, normal bowel sounds, No tenderness Back Exam: normal inspection, normal range of motion, No CVA tenderness, No vertebral tenderness Extremity Exam: normal inspection, normal range of motion, pelvis stable Mental Status Exam: alert, oriented x 3, 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 Exam: normal hearing, normal speech, PERRL Coordination/Gait Exam: normal finger to nose, normal gait, normal cerebellar function Motor/Sensory Exam: no motor deficit, no sensory deficit, no pronator drift Skin Exam: normal color, warm, dry Lymphatic Exam: No adenopathy SpO2 Interpretation: normal O2 Delivery: Room Air Ordered Tests: Active Orders 24 hr Category Date Time Status UA W/RFX UR CULTURE Stat Lab 12/15/22 07:46 Completed Medication Summary Discontinued Medications Generic Name Dose Route Start Last Admin Trade Name Freq PRN Reason Stop Dose Admin Acetaminophen 650 mg 12/15/22 07:44 12/15/22 07:48 Acetaminophen 325 Mg Tablet PO 12/15/22 07:45 650 mg STAT STA Administration Acetaminophen Confirm 12/15/22 07:48 Acetaminophen 325 Mg Tablet Administered 12/15/22 07:49 Dose 650 mg .ROUTE .STK-MED ONE Ibuprofen 600 mg 12/15/22 07:44 12/15/22 07:49 Ibuprofen 600 Mg Tablet PO 12/15/22 07:45 600 mg STAT STA Administration Ibuprofen Confirm 12/15/22 07:48 Ibuprofen 600 Mg Tablet Administered 12/15/22 07:49 Dose 600 mg .ROUTE .STK-MED ONE Lab/Rad Data: Laboratory Results 12/15/22 12/15/22 Range/Units 07:51 07:46 Urine Color Yellow (Yellow) Urine Appearance Cloudy A (Clear) Urine pH 5.5 (4.6-8.0) Ur Specific Gregory >=1.030 A (1.005-1.030) Urine Protein 30 (Negative) Urine Glucose (UA) Negative (Negative) mg/dL Urine Ketones Trace A (Negative) Urine Blood Negative (Negative) Urine Nitrite Negative (Negative) Urine Bilirubin Negative (Negative) Urine Urobilinogen 0.2 (0.2) mg/dL Ur Leukocyte Esterase Trace A (Negative) U Hyaline Cast (Auto) NONE SEEN (0-2) /LPF Urine Microscopic RBC 0-2 (0-5) /HPF Urine Microscopic WBC 21-50 A (0-5) /HPF Ur Epithelial Cells Moderate A (None Seen) /HPF Urine Bacteria Moderate A (None Seen) /HPF Urine Culture Reflexed FV (NO) Influenza Type A Ag NEGATIVE (NEGATIVE) Influenza Type B Ag NEGATIVE (NEGATIVE) RSV (PCR) NEGATIVE (Negative) SARS-CoV-2 (PCR) NEGATIVE (NEGATIVE) Group A Strep Antibody NOT DETECTED (NEGATIVE) Medical Desision Making - Discussion of managment Reviewed:: Test results Agreed on:: Treatment plan, need for follow-up - Diagnostic Testing Diagnostic test were ordered, analyzed, and reviewed by me: Yes - Risk of complications The pt has a mod risk of morbidity or mortality based on: Need for prescription drug management - Departure Departure Disposition: Home Clinical Impression: UTI (urinary tract infection) Condition: Stable Critical Care Time: No Referrals: MENDEZ,NEEMA, ELECTRONIC GLUING MACHINE OPERATOR [Primary Care Provider] - Follow up/PCP as directed Additional Instructions: Drink plenty of fluids. Take your medication as prescribed. Add ibuprofen 600 mg orally every 8 hours to help with aches, pains and fever control. Follow-up with your primary care provider for persistent symptoms. Prescriptions: Hydrocodone/Acetaminophen [Hydrocodone-Acetamn 7.5-325/15] 10 ml PO Q8H PRN PRN #120 ml MDD 30 ml PRN Reason: Cough Ciprofloxacin [Cipro 500 MG] 500 mg PO BID #14 tablet Prednisone 10 mg [Deltasone 10 mg] 10 mg PO TID #12 tablet
[2022-12-15] MEDS ORDERED: MOTRIN 600 MG PO STA (07:44)
[2022-12-15] MEDS ORDERED: TYLENOL 325 MG PO STA (07:44)
[2022-12-15] MEDS ORDERED: MOTRIN 600 MG ONE (07:48)
[2022-12-15] MEDS ORDERED: TYLENOL 325 MG ONE (07:48)
[2022-12-15 08:24] LABS: Group A Strep NOT DETECTED (NEGATIVE)
[2022-12-15 08:35] LABS: INFLUENZA A NEGATIVE (NEGATIVE); INFLUENZA B NEGATIVE (NEGATIVE); RESPIRATORY SYNCTIAL VIRUS NEGATIVE (Negative); SARS-CoV-2 Xpert Express NEGATIVE (NEGATIVE)
[2022-12-15 09:05] LABS: Appearance Cloudy (Clear); Bacteria Moderate /HPF (None Seen); Bilirubin Negative (Negative); Blood Negative (Negative); Epithelial Cells Moderate /HPF (None Seen); Glucose, Urine Negative (Negative); Hyaline Casts NONE SEEN /LPF (0-2); Ketones Trace (Negative); Leukocyte Esterase Trace (Negative); Nitrite Negative (Negative); Ph 5.5 (4.6-8.0); Protein,Urine Dip 30 (Negative); RBC 0-2 /HPF (0-5); Specific Gravity >=1.030 (1.005-1.030); Urobilinogen 0.2 mg/dL (0.2); WBC 21-50 /HPF (0-5)
[2022-12-15] MEDS ORDERED: Levofloxacin 500 MG Tablet PO ONE (09:19)
[2022-12-15] MEDS ORDERED: Levofloxacin 500 MG Tablet ONE (09:21)
[2022-12-15 09:25] VITALS: BP 112/73; PULSE 103; O2SAT 97
[2022-12-15 09:51] LABS: ADD URINE CULTURE? YES (NO)
== END 2022-12-15 09:37 | disposition home or self-care (01) ==
LOC: ED 07:13
DX: N39.0 Urinary tract infection, site not specified (principal); R51.9 Headache, unspecified; M79.10 Myalgia, unspecified site; R05.1 Acute cough; Z79.891 Long term (current) use of opiate analgesic; Z79.52 Long term (current) use of systemic steroids; Z79.899 Other long term (current) drug therapy; Z28.310 Unvaccinated for COVID-19
CPT/HCPCS: 0241U; 81001; 87086; 87651; 99283; A9270-GY

== ENCOUNTER 2023-01-14 18:46 | Emergency (ER) | payer BC | END 2023-01-14 19:18 | disposition left against medical advice (07) | LOC: ED 18:46 | DX: Z53.21 Procedure and treatment not carried out due to patient leaving prior to being seen by health care provider (principal) ==

== ENCOUNTER 2023-09-24 14:22 | Emergency (ER) | payer BC, SELFPAY ==
[2023-09-24 15:03] VITALS: TEMP 96.5; O2SAT 96
[2023-09-24] MEDS ORDERED: DECADRON 10MG INJ. IM ONE (15:06)
[2023-09-24] MEDS ORDERED: TORAdol 30 mg Injection IM ONE (15:07)
--- NOTE | 2023-09-24 15:10 | ERPHSYRPT ---
- History of Present Illness Time Seen by Provider: 09/24/23 14:55 Source: patient Exam Limitations: no limitations Patient Subjective Stated Complaint: pt states that she has been having pain for the past 3 days Triage Nursing Assessment: pt ambulated into the er; pt is axo x4; c/o back pain; pt states that pain radiates to RLE; no deformity present to back; no tenderness present; skin PDW; no respiratory distress present; vitals wnl Physician History: Patient is a 28-year-old female with a history of sciatica presents to our ED for evaluation and treatment of a sciatica flareup. Patient states that she is currently seeing her primary care provider for management. She is on meloxicam but has not taken meloxicam in over a day. Patient's pain is localized to the lower back however certain movements cause pain to shoot down her right leg. No trauma no fever. No change in bowel bladder function. No saddle anesthesia. No recent back procedure. Patient states otherwise healthy. She voices no other complaints or concerns at this time. Portions of this note were created with voice recognition technology. There may be grammatical, spelling, punctuation or sound alike errors Timing/Duration: today Severity: moderate Modifying Factors: Improves With: nothing Associated Symptoms: denies symptoms Allergies/Adverse Reactions: cefaclor [From Ce[employer]] Allergy (Verified 09/24/23 14:47) Rash Home Medications: Phentermine HCl [Adipex-P] 37.5 mg PO DAILY 05/14/22 [History] Albuterol Sulfate [Albuterol Sulfate Hfa] 2 puffs IH Q4HPRN PRN 09/24/23 [History] Famotidine 20 mg PO DAILY 09/24/23 [History] Fluoxetine HCl 20 mg [Prozac 20 MG] 20 mg PO DAILY 09/24/23 [History] Meloxicam 15 mg [Meloxicam 15 MG] 15 mg PO DAILY 09/24/23 [History] Topiramate 50 mg PO BID 09/24/23 [History] Trazodone HCl 50 mg [Desyrel 50 mg] 50 mg PO HS 09/24/23 [History] Hx Tetanus, Diphtheria Vaccination/Date Given: No Hx Influenza Vaccination/Date Given: No Hx Pneumococcal Vaccination/Date Given: No Travel Risk - International Travel Have you traveled outside of the country in past 3 weeks: No - Coronavirus Screening Are you exhibiting any of the following symptoms?: No Close contact with a COVID-19 positive Pt in past 14-21 Days: No - Vaccine Status Have you recieved a Covid-19 vaccination: No - Review of Systems Constitutional: No Symptoms, No Fever, No Chills Eyes: No Symptoms Ears, Nose, & Throat: No Symptoms Respiratory: No Symptoms, No Cough, No Dyspnea Cardiac: No Symptoms, No Chest Pain, No Edema, No Syncope Abdominal/Gastrointestinal: No Symptoms, No Abdominal Pain, No Nausea, No Vomiting, No Diarrhea Genitourinary Symptoms: No Symptoms, No Dysuria Musculoskeletal: No Symptoms, No Back Pain, No Neck Pain Skin: No Symptoms, No Rash Neurological: No Symptoms, No Dizziness, No Focal Weakness, No Sensory Changes Psychological: No Symptoms Endocrine: No Symptoms Hematologic/Lymphatic: No Symptoms Immunological/Allergic: No Symptoms All Other Systems: Reviewed and Negative - Past Medical History Pertinent Past Medical History: Yes Neurological History: Migraines ENT History: No Pertinent History Cardiac History: No Pertinent History Respiratory History: Asthma Endocrine Medical History: No Pertinent History Musculoskeletal History: No Pertinent History GI Medical History: GERD History: No Pertinent History Psycho-Social History: Depression Female Reproductive Disorders: No Pertinent History 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 - Past Surgical History Past Surgical History: Yes Neuro Surgical History: No Pertinent History Cardiac: No Pertinent History Respiratory: No Pertinent History Gastrointestinal: No Pertinent History Genitourinary: No Pertinent History Musculoskeletal: No Pertinent History Female Surgical History: Tubal Ligation - Social History Smoking Status: Never smoker Exposure to second hand smoke: No Drug Use: none Patient Lives Alone: No - Female History Hx Now: No - Nursing Vital Signs Nursing Vital Signs: Initial Vital Signs Temperature 96.5 F 09/24/23 14:47 Pulse Rate 95 H 09/24/23 14:47 Respiratory Rate 18 09/24/23 14:47 Blood Pressure 132/86 09/24/23 14:47 O2 Sat by Pulse Oximetry 96 09/24/23 14:47 Pain Scale Pain Intensity [Right Lower 10 Back] Pain Intensity 0 - Physical Exam General Appearance: no apparent distress, alert Eye Exam: PERRL/EOMI, eyes nml inspection Ears, Nose, Throat Exam: normal ENT inspection, TMs normal, pharynx normal, moist mucous membranes Neck Exam: normal inspection, non-tender, supple, full range of motion Respiratory Exam: normal breath sounds, lungs clear, airway intact, No respir atory distress Cardiovascular Exam: regular rate/rhythm, normal heart sounds, normal peripheral pulses Gastrointestinal/Abdomen Exam: soft, normal bowel sounds, No tenderness, No mass Back Exam: normal inspection, normal range of motion, other (Positive straight leg raise. Tenderness to palpation at lower lumbar spine), No CVA tenderness, No vertebral tenderness Extremity Exam: normal inspection, normal range of motion, pelvis stable Neurologic Exam: alert, oriented x 3, cooperative, normal mood/affect, nml cerebellar function, nml station & gait, sensation nml, No motor deficits Skin Exam: normal color, warm, dry, No rash Lymphatic Exam: No adenopathy SpO2 Interpretation: normal SpO2: 96 O2 Delivery: Room Air - Course Nursing assessment & vital signs reviewed: Yes Ordered Tests: Active Orders 24 hr Category Date Time Status LUMBAR SPINE W/O [CT] Stat Exams 09/24/23 15:06 Completed Medication Summary Discontinued Medications Generic Name Dose Route Start Last Admin Trade Name Mian PRN Reason Stop Dose Admin Dexamethasone Sodium Phosphate 8 mg 09/24/23 15:06 09/24/23 15:45 Dexamethasone Sod Phosphate 10 Mg/Ml IM 09/24/23 15:07 8 mg STAT ONE Administration Dexamethasone Sodium Phosphate Confirm 09/24/23 15:42 Dexamethasone Sod Phosphate 10 Mg/Ml Administered 09/24/23 15:43 Dose 10 mg .ROUTE .STK-MED ONE Ketorolac Tromethamine 30 mg 09/24/23 15:07 09/24/23 15:44 Ketorolac Tromethamine 30 Mg/Ml Inj IM 09/24/23 15:08 30 mg STAT ONE Administration Ketorolac Tromethamine Confirm 09/24/23 15:42 Ketorolac Tromethamine 30 Mg/Ml Inj Administered 09/24/23 15:43 Dose 30 mg .ROUTE .STK-MED ONE - Progress Progress: improved Progress Note: 28-year-old female presents to our ED for evaluation of low back pain. Patient has known diagnosis of sciatica. However she has not had imaging studies. Physical exam reveals positive straight leg raise. CT reveals a herniated disc with central canal stenosis. Patient received Toradol and Decadron for pain control. Pain significantly improved. No indication for further workup. Patient will be referred to Dr. Higinio Sheikh orthopedic spine surgeon for follow-up. Patient voices no other complaints or concerns at this time. Patient states he is ready for discharge. Portions of this note were created with voice recognition technology. There may be grammatical, spelling, punctuation or sound alike errors Complexity of problem addressed is moderate acute complicated No critical care time Place of data reviewed and analyzed is moderate. Test ordered test reviewed. Results analyzed and correlated clinically. Risk of complication and or risk of morbidity/mortality of patient management is moderate. Patient has Mobic at home which she will continue for pain control. Vital stable. Time spent to discharge patient is approximately 10 minutes. Plan of care established for shared decision making. No social determinants of health present impede follow-up. Portions of this note were created with voice recognition technology. There may be grammatical, spelling, punctuation or sound alike errors 09/24/23 17:02 Counseled pt/family regarding: diagnosis, need for follow-up, rad results - Departure Departure Disposition: Home Clinical Impression: Disc herniation, Central stenosis of spinal canal, Sciatica Condition: Stable Critical Care Time: No Referrals: NEEMA LYN NP [Primary Care Provider] - Follow up/PCP as directed BEATA SHEIKH [NON-STAFF PHY W/O PRIVILEGES] - Follow up/PCP as directed Instructions: Low Back Pain (DC), Sciatica (DC) Additional Instructions: Discharge/Care Plan NILTON NELSON was seen on 09/24/23 in the Emergency Room. The patient was counseled regarding Diagnosis,Lab results, Imaging studies, need for follow up and when to return to the Emergency Room. Prescriptions given: Discharge Note I have spoken with the patient and/or caregivers. I have explained the patient's condition, diagnosis and treatment plan based on the information available to me at this time. I have answered the patient's and/or caregiver's questions and addressed any concerns. The patient and/or caregivers have as good understanding of the patient's diagnosis, condition and treatment plan as can be expected at this point. The vital signs have been stable. The patient's condition is stable and appropriate for discharge from the emergency department. The patient will pursue further outpatient evaluation with the primary care physician or other designated or consulting physician as outlined in the dischar ge instructions. The patient and/or caregivers are agreeable to this plan of care and follow-up instructions have been explained in detail. The patient and/or caregivers have received these instruction. The patient/and or caregivers are aware that any significant change in condition or worsening of symptoms should prompt an immediate return to this or the closest emergency department or call 911.
[2023-09-24 15:27] VITALS: BP 126/81; PULSE 88
[2023-09-24] MEDS ORDERED: TORAdol 30 mg Injection ONE (15:42)
[2023-09-24] MEDS ORDERED: DECADRON 10MG INJ. ONE (15:42)
--- NOTE | 2023-09-24 16:30 | XRAY ---
Indication: Low back pain radiating right leg. Multiple contiguous axial images obtained through the lumbar spine. Sagittal and coronal reformatted images obtained. Comparison: None Axial images demonstrates moderate broad-based disc herniation L4-L5 effacing the thecal sac and producing spinal canal stenosis and bilateral foraminal narrowing. Minimal broad-based disc bulge at L3-L4 level. No acute fracture or suspicious bony lesions. Facets are symmetric. Sagittal and coronal reformatted images demonstrates normal alignment. Vertebral body heights/disc spaces maintained. No acute compression fracture or subdivision. Visualized noncontrasted soft tissues are unremarkable. Impression: 1. L4-L5 broad-based disc herniation with spinal canal stenosis and bilateral foraminal narrowing. 2. Minimal L3-L4 degenerative disc bulge.
[2023-09-24 16:45] VITALS: RESP 20
[2023-09-24] MEDS ORDERED: DUONEB 0.5-3 MG/3 ml Neb IH ONE (17:13)
== END 2023-09-24 16:54 | disposition home or self-care (01) ==
LOC: ED 14:22
DX: M51.16 Intervertebral disc disorders with radiculopathy, lumbar region (principal); M48.061 Spinal stenosis, lumbar region without neurogenic claudication; Z79.899 Other long term (current) drug therapy; Z28.310 Unvaccinated for COVID-19
CPT/HCPCS: 72131; 96372; 99283; J1100; J1885; A9270-GY

== ENCOUNTER 2024-03-14 07:49 | Emergency (ER) | payer BC ==
--- NOTE | 2024-03-14 08:14 | ERPHSYRPT ---
- History of Present Illness Time Seen by Provider: 03/14/24 08:14 Source: patient, family Exam Limitations: no limitations Physician History: pt has diagnosis of right DDD lumbar for past few months. They last tried epidural in January but did not work and now plan surgery, after repeat MRI. There has been radicular right symptoms worse over past week. THe spine is no ntender with pain in right buttock rad down sciatic distribution with decreased sensation in that distribution. Her Treating is aware of the increased radicular numbness and treating with some steroids. There are no bowel or bladder symptoms. Sensation at anal area is intact. strength still good but some give way weakness with pain. on right . Abd nontender with out mass or peritoneal signs. No hx trauma . No fever. DIscussed risks/benefits of Tx with pt and available family and cbc and they wish tp proceed. Timing/Duration: week(s) Method of Injury: other (No acute injury) Quality: burning, radiating, sharp, throbbing Back Pain Location: paraspinous muscles Back Pain Radiation: buttocks, lower legs Severity of Pain-Max: moderate Severity of Pain-Current: moderate Modifying Factors: Improves With: movement, pain medication Associated Symptoms: denies symptoms, tingling in legs/feet, muscle spasms, No fever, No urinary incontinence, No loss of bowel control, No constipation, No nausea, No vomiting, No problems urinating Previous symptoms: same symptoms as today, recently seen, recently treated Allergies/Adverse Reactions: cefaclor [From Ceclor] Allergy (Verified 03/14/24 08:20) Rash Home Medications: Phentermine HCl [Adipex-P] 37.5 mg PO DAILY 05/14/22 [History] Albuterol Sulfate [Albuterol Sulfate Hfa] 2 puffs IH Q4HPRN PRN 09/24/23 [History] Famotidine 20 mg PO DAILY 09/24/23 [History] Fluoxetine HCl 20 mg [Prozac 20 MG] 20 mg PO DAILY 09/24/23 [History] Topiramate 50 mg PO BID 09/24/23 [History] Celecoxib [Celebrex] 200 mg PO BID 03/14/24 [History] Prednisone 10 mg [Deltasone 10 mg] 10 mg PO UD 03/14/24 [History] Hx Tetanus, Diphtheria Vaccination/Date Given: No Hx Influenza Vaccination/Date Given: No Hx Pneumococcal Vaccination/Date Given: No - Review of Systems Constitutional: No Fever, No Chills Eyes: No Symptoms Ears, Nose, & Throat: No Symptoms Respiratory: No Cough, No Dyspnea Cardiac: No Chest Pain, No Edema, No Syncope Abdominal/Gastrointestinal: No Abdominal Pain, No Nausea, No Vomiting, No Diarrhea Genitourinary Symptoms: No Dysuria Musculoskeletal: Back Pain, No Neck Pain, No Fall Skin: No Rash Neurological: No Dizziness, No Focal Weakness, No Sensory Changes Psychological: No Symptoms Endocrine: No Symptoms Hematologic/Lymphatic: No Symptoms Immunological/Allergic: No Symptoms All Other Systems: Reviewed and Negative - Past Medical History Pertinent Past Medical History: Yes Neurological History: Migraines ENT History: No Pertinent History Cardiac History: No Pertinent History Respiratory History: Asthma Endocrine Medical History: No Pertinent History Musculoskeletal History: No Pertinent History GI Medical History: GERD History: No Pertinent History Psycho-Social History: Depression Female Reproductive Disorders: No Pertinent History 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 - Past Surgical History Past Surgical History: Yes Neuro Surgical History: No Pertinent History Cardiac: No Pertinent History Respiratory: No Pertinent History Gastrointestinal: No Pertinent History Genitourinary: No Pertinent History Musculoskeletal: No Pertinent History Female Surgical History: Tubal Ligation - Social History Smoking Status: Never smoker Exposure to second hand smoke: No Drug Use: none Patient Lives Alone: No - Nursing Vital Signs Nursing Vital Signs: Initial Vital Signs Temperature 97.5 F 03/14/24 08:10 Pulse Rate 92 H 03/14/24 08:10 Blood Pressure 147/81 03/14/24 08:10 O2 Sat by Pulse Oximetry 98 03/14/24 08:10 Pain Scale Pain Intensity 10 - Physical Exam General Appearance: no apparent distress, alert Eye Exam: PERRL/EOMI, eyes nml inspection Ears, Nose, Throat Exam: normal ENT inspection Neck Exam: normal inspection, non-tender, supple, full range of motion, No meningismus, No midline tenderness Respiratory Exam: normal breath sounds, lungs clear, No respiratory distress Cardiovascular Exam: regular rate/rhythm, normal heart sounds Gastrointestinal Exam: soft, No tenderness, No mass Pelvic Exam: deferred Rectal Exam: deferred Back Exam: normal inspection, decreased range of motion, muscle spasm, No vertebral tenderness, No point tenderness Extremity Exam: normal inspection, normal range of motion, No calf tenderness, No pedal edema Peripheral Pulses: carotid (R): 2+, carotid (L): 2+, femoral (R): 2+, femoral (L): 2+, dorsalis-pedis (R): 2+, dorsalis-pedis (L): 2+ Neurologic Exam: alert, oriented x 3, cooperative, 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, normal mood/affect, nml cerebellar function, nml station & gait, sensation nml, sensory deficit, No motor deficits Skin Exam: normal color, warm, dry, No rash SpO2 Interpretation: normal SpO2: 98 O2 Delivery: Room Air - Course Nursing assessment & vital signs reviewed: Yes Ordered Tests: Active Orders 24 hr Category Date Time Status IV Insertion STAT Care 03/14/24 08:21 Active CBC W DIFF Stat Lab 03/14/24 08:30 Completed Medication Summary Generic Name Dose Route Start Last Admin Trade Name Freq PRN Reason Stop Dose Admin Sodium Chloride 1,000 mls @ 100 mls/hr 03/14/24 08:30 03/14/24 08:42 Sodium Chloride 0.9% 1000 Ml IV 04/13/24 08:29 100 mls/hr .Q10H CANDACE Administration Discontinued Medications Generic Name Dose Route Start Last Admin Trade Name Freq PRN Reason Stop Dose Admin Methylprednisolone Sodium 0 mg 03/14/24 08:23 03/14/24 08:42 Succinate 125 mg/ Sterile IV 03/14/24 08:24 125 mg Water 2 ml STAT ONE Administration Ketamine HCl 10 mg 03/14/24 10:01 03/14/24 10:22 Ketamine Hcl 50 Mg/Ml IV 03/14/24 10:02 10 mg STAT ONE Administration Ketamine HCl Confirm 03/14/24 10:17 Ketamine Hcl 50 Mg/Ml Administered 03/14/24 10:18 Dose 50 mg .ROUTE .STK-MED ONE Ketorolac Tromethamine 30 mg 03/14/24 08:21 03/14/24 08:42 Ketorolac Tromethamine 30 Mg/Ml Inj IV 03/14/24 08:22 30 mg STAT ONE Administration Ketorolac Tromethamine Confirm 03/14/24 08:37 Ketorolac Tromethamine 30 Mg/Ml Inj Administered 03/14/24 08:38 Dose 30 mg .ROUTE .STK-MED ONE Methylprednisolone Sodium Succinate Confirm 03/14/24 08:37 Methylprednis Sod Succ 125 Mg/2 Ml Vial Administered 03/14/24 08:38 Dose 125 mg .ROUTE .STK-MED ONE Orphenadrine Citrate 60 mg 03/14/24 08:24 03/14/24 08:41 Orphenadrine Citrate 60 Mg/2 Ml Vial IV 03/14/24 08:25 60 mg STAT ONE Administration Orphenadrine Citrate Confirm 03/14/24 08:37 Orphenadrine Citrate 60 Mg/2 Ml Vial Administered 03/14/24 08:38 Dose 60 mg .ROUTE .STK-MED ONE Sterile Water Confirm 03/14/24 08:37 Water For Injection,Sterile 10 Ml Vial Administered 03/14/24 08:38 Dose 10 ml IJ .STK-MED ONE Lab/Rad Data: Laboratory Result Diagrams 03/14/24 08:30 Laboratory Results 03/14/24 Range/Units 08:30 WBC 7.4 (3.98-10.04) x10^3/uL RBC 4.57 (3.93-5.22) x10^6/uL Hgb 13.6 (11.2-15.7) g/dL Hct 40.4 (34.1-44.9) % MCV 88.4 (79.4-94.8) fL MCH 29.8 (25.6-32.2) pg MCHC 33.7 (32.2-35.5) g/dL RDW 12.0 (11.7-14.4) % Plt Count 259 (182-369) x10^3/uL MPV 11.0 (9.4-12.3) fL Gran % 60.7 (34.0-71.1) % Immature Gran % (Auto) 0.3 (0.001-0.429) % Nucleat RBC Rel Count 0.0 (0.00-0.2) % Eos # (Auto) 0.11 (0.04-0.36) x10^3/uL Immature Gran # (Auto) 0.02 (0.001-0.031) x10^3u/L Absolute Lymphs (auto) 2.20 (1.18-3.74) x10^3/uL Absolute Monos (auto) 0.50 (0.24-0.86) x10^3/uL Absolute Nucleated RBC 0.00 (0.00-0.012) x10^3u/L Lymphocytes % 29.9 (19.3-51.7) % Monocytes % 6.8 (4.7-12.5) % Eosinophils % 1.5 (0.7-5.8) % Basophils % 0.8 (0.1-1.2) % Absolute Granulocytes 4.47 (1.56-6.13) x10^3/uL Basophils # 0.06 (0.01-0.08) x10^3/uL - Progress Progress: improved, re-examined Progress Note: 03/14/24 09:59 mild improvement after meds so far. Discussed risks/benefits of ketamine and family and pt wish to try low dose in ER for relief. They agree to stay together to observe 24 hours after. 03/14/24 10:58 Symptoms resolved and managable after ketamine. Pt and family advised to watch her 24 hours at home and no decision making or driving. F/u with Dr. alonso for MRI and continued treatment. They have been advised that although no signs of it there could be additional pathology such as epidural complications or abscess or progression of the DDD and they are comfortable with f/u outpt with PCP rather than further eval in ER or transfer and have the capacity to make this choice. 03/14/24 11:05 Counseled pt/family regarding: lab results, diagnosis, need for follow-up Medical Desision Making - Discussion of managment Reviewed:: Test results, Need for additional workup Agreed on:: Treatment plan, need for follow-up - Diagnostic Testing Diagnostic test were ordered, analyzed, and reviewed by me: Yes - Risk of complications The pt has a mod risk of morbidity or mortality based on: Need for prescription drug management - Departure Departure Disposition: Home Clinical Impression: LBP and radiculopathy on Right Condition: Good Critical Care Time: No Referrals: NEEMA LYN NP [Primary Care Provider] - Follow up/PCP as directed Instructions: Low Back Pain (DC), Sciatica (DC), Radiculopathy (DC), Ketamine Additional Instructions: followup with your Saturday for MRI and Treatment as planned. No driving or making any decisions for 24 hours and just stay home with relatives to observe you and rest. We cannot exclude the possibility for other undetected problems or complications from the epidural or progression of the Disc so it is important to have this followup early and to return meantime if any symptoms of concern such as fever, weakness, bowel or bladder symptoms or other concerns. Followup with your Dr. for slight elevation of blood pressure also. Prescriptions: Methylprednisolone Packet [Medrol Dosepack] 4 mg PO UD #30 packet
[2024-03-14 08:24] VITALS: PULSE 92; TEMP 97.5
[2024-03-14] MEDS ORDERED: Sodium Chloride 0.9% 1000 ML 1,000 ML ONE (08:37)
[2024-03-14] MEDS ORDERED: TORAdol 30 mg Injection ONE (08:37)
[2024-03-14] MEDS ORDERED: Norflex 60 MG/2 ML ONE (08:37)
[2024-03-14] MEDS ORDERED: solu-MEDROL ONE (08:37)
[2024-03-14] MEDS ORDERED: Sterile H2O 10 ml IJ ONE (08:37)
[2024-03-14 08:40] LABS: Absolute Neutrophil Ct (ANC) 4.47 x10^3/uL (1.56-6.13); BASOPHIL % 0.8 % (0.1-1.2); Basophil (Absolute #) 0.06 x10^3/uL (0.01-0.08); Eosinophil % 1.5 % (0.7-5.8); Eosinophil (Absolute #) 0.11 x10^3/uL (0.04-0.36); Hematocrit 40.4 % (34.1-44.9); Hemoglobin 13.6 g/dL (11.2-15.7); IMMATURE GRAN # 0.02 x10^3u/L (0.001-0.031); IMMATURE GRAN % 0.3 % (0.001-0.429); Lymphocytes % 29.9 % (19.3-51.7); Mean Cell Volume 88.4 fL (79.4-94.8); Mean Corpuscular Hemoglobin 29.8 pg (25.6-32.2); Mean Corpuscular Hgb Concent. 33.7 g/dL (32.2-35.5); Monocytes % 6.8 % (4.7-12.5); Neutrophil % 60.7 % (34.0-71.1); Platelet Count 259 x10^3/uL (182-369); Red Blood Count 4.57 x10^6/uL (3.93-5.22); White Blood Count 7.4 x10^3/uL (3.98-10.04)
[2024-03-14] MEDS: Norflex 60 MG/2 ML IV ONE (08:41)
[2024-03-14] MEDS: solu-MEDROL 125 MG, Sterile H2O 10 ml 2 ML IV ONE (08:42)
[2024-03-14] MEDS: Sodium Chloride 0.9% 1000 ML 1,000 ML IV SCH (08:42)
[2024-03-14] MEDS: TORAdol 30 mg Injection IV ONE (08:42)
[2024-03-14] MEDS ORDERED: Ketamine HCl 50 MG/ML ONE (10:17)
[2024-03-14] MEDS: Ketamine HCl 50 MG/ML IV ONE (10:22)
[2024-03-14 11:04] VITALS: BP 125/68
[2024-03-14 11:05] VITALS: O2SAT 98
== END 2024-03-14 11:17 | disposition home or self-care (01) ==
LOC: ED 07:49
DX: M54.16 Radiculopathy, lumbar region (principal); M54.50 Low back pain, unspecified; Z79.52 Long term (current) use of systemic steroids; Z79.899 Other long term (current) drug therapy
CPT/HCPCS: 36000; 36415; 85025; 96374; 96375; 99284; J1885; J2360; J2919